=== PATIENT | female | born 1990 | race Caucasian/White ===

== ENCOUNTER 2018-09-16 02:12 | Emergency (ER) | payer OTHER ==
[~2018-09-16] VITALS: Ht 162.6 cm; Wt 107.5 kg
[2018-09-16 02:19] VITALS: Ht 162.6 cm; Wt 107.5 kg
[2018-09-16 05:26] VITALS: BP 120/86
== END 2018-09-16 05:26 | disposition home or self-care (01) ==
LOC: ED 02:12
DX: T16.2XXA Foreign body in left ear, initial encounter (principal); Z88.0 Allergy status to penicillin; W45.8XXA Other foreign body or object entering through skin, initial encounter; Y93.89 Activity, other specified; Y92.89 Other specified places as the place of occurrence of the external cause; Y99.8 Other external cause status

== ENCOUNTER 2019-01-19 06:27 | Emergency (ER) | payer OTHER ==
[~2019-01-19] VITALS: Ht 162.6 cm; Wt 110.2 kg
[2019-01-19 06:35] VITALS: Ht 162.6 cm; Wt 110.2 kg
[2019-01-19 08:24] VITALS: BP 130/75
== END 2019-01-19 08:24 | disposition home or self-care (01) ==
LOC: ED 06:27
DX: O26.892 Other specified pregnancy related conditions, second trimester (principal); G44.209 Tension-type headache, unspecified, not intractable; Z3A.18 18 weeks gestation of pregnancy; Z88.0 Allergy status to penicillin
CPT/HCPCS: Q0162

== ENCOUNTER 2020-02-09 10:36 | Emergency (ER) | payer OTHER, SELFPAY ==
[~2020-02-09] VITALS: Ht 162.6 cm; Wt 113.4 kg
[2020-02-09 10:43] VITALS: BP 141/90; Ht 162.6 cm; Wt 113.4 kg
== END 2020-02-09 11:57 | disposition home or self-care (01) ==
LOC: ED 10:36
DX: R43.8 Other disturbances of smell and taste (principal); R11.0 Nausea; R53.1 Weakness; Z20.828 Contact with and (suspected) exposure to other viral communicable diseases; Z88.0 Allergy status to penicillin
CPT/HCPCS: U0003-CS

== ENCOUNTER 2020-06-30 10:33 | Emergency (ER) | payer OTHER, SELFPAY ==
[~2020-06-30] VITALS: Ht 162.6 cm; Wt 108.9 kg
[2020-06-30 10:34] VITALS: BP 143/88; Ht 162.6 cm; Wt 108.9 kg
== END 2020-06-30 11:09 | disposition home or self-care (01) ==
LOC: ED 10:33
DX: U07.1 COVID-19 (principal); Z88.0 Allergy status to penicillin
CPT/HCPCS: U0003